=== PATIENT | female | born 2000 | race Caucasian/White ===

== ENCOUNTER 2022-01-06 14:23 | Emergency (ER) | payer BC, MEDICAID, SELFPAY ==
--- NOTE | ~2022-01-06 | XR_ITS ---
EXAMINATION: RIGHT HAND AND WRIST X-RAY CLINICAL INFORMATION: Pain. Trauma 10 days ago. COMPARISON: None TECHNIQUE: 4 views of the right hand and wrist FINDINGS: Bone alignment is normal. No fracture or dislocation is seen. Joint spaces are normal. Soft tissues are normal. XR/XR hand wrist RT IMPRESSION: Unremarkable exam.
[2022-01-06 14:33] VITALS: BP 160/75; PULSE 92; O2SAT 95
[2022-01-06 15:16] VITALS: BP 124/81; PULSE 85; RESP 15; TEMP 36.8; O2SAT 95; BMI 30.4
[2022-01-06 15:22] VITALS: PULSE 83; RESP 16
--- NOTE | 2022-01-06 16:08 | ED_ITS ---
HPI - Extremity Problem General Chief complaint: Extremity Injury, Upper Stated complaint: WRIST PAIN S/P PUNCHING WALL PER EMS Time Seen by Provider: 01/06/22 14:47 Source: patient Mode of arrival: EMS Limitations: no limitations History of Present Illness HPI Narrative: Patient presents to the emergency department for evaluation of pain swelling and bruising to the right hand. Patient coming from [facility], patient has been function hall and plexi-glass over the past week. Is noted to have more extensive bruising and swelling, and decreased movement to the fingers of right hand, therefore sent to the emergency department to have x-ray obtained Related Data Allergies Allergy/AdvReac Type Severity Reaction Status Date / Time No Known Allergies Allergy Verified 01/06/22 14:48 Review of Systems Review of Systems: MSK: Right hand pain and swelling Yes all other systems are reviewed and are negative [facility] Past Medical History Attestation statement: The following information was validated with the patient. Source: old records reviewed Social History Social History Advance Directives: No Advance Directives Information Provided: No Physical Exam Vital Signs: Vital Signs: Last Vital Signs Temp 98.3 F 01/06/22 15:16 Pulse 83 01/06/22 15:22 Resp 16 01/06/22 15:22 BP 124/81 01/06/22 15:16 Pulse Ox 95 01/06/22 15:16 O2 Del Method 01/06/22 15:16 BMI result Body Mass Index 30.4 Vital signs have been reviewed as normal and appeared to be correct. Blood pressure normal.? Heart rate normal.? Respiration rate normal. Temperature normal.? Oxygen saturation normal. Appearance: Alert.?Oriented to person, place and time. No acute distress.?Normal affect. Eyes: Pupils equal, round and reactive to light.? ENT: Pharynx normal.?? Neck: Normal inspection.? Neck supple.?? CVS: Heart sounds normal. Normal heart rate and rhythm.? Pulses normal.?? Respiratory: No respiratory distress.? Lung sounds clear to auscultation bilaterally?? Abdomen: Soft and non-tender Skin: Skin warm and dry.? Normal skin color.? Extremities: No lower extremity edema.? Right hand with significant bruising and swelling over the dorsal aspect the hand along the base of the 3rd through 5th digits, no erythema or warmth. No obvious deformity. Neuro: Moves all extremities spontaneously. Sensation intact bilaterally. No focal neuro deficits. Ambulates with normal steady gait. Course Course Course Narrative: Patient is a 21-year-old presenting for evaluation of right hand pain and bruising after repeated traumatic injury. X-ray obtained reveals no acute fracture or dislocation. Not consistent with septic arthritis. Limited AROM to 3rd-5th digit, notable swelling and ecchymosis. Consistent with contusion of the hand. Discussed plan of care for rest, ice, compression with GERTRUDIS bandage, Tylenol/ibuprofen as needed for pain, avoidance of further punching with this hand as this may result in subsequent fracture/ dislocation. MDM - Extremity (Nontraumatic) Medical Records Attestation: I reviewed the patient's medical records. Imaging Data XR hand/wrist: Radiologist's impression: FINDINGS: Bone alignment is normal. No fracture or dislocation is seen. Joint spaces are normal. Soft tissues are normal.? XR/XR hand wrist RT IMPRESSION: Unremarkable exam.? Discharge Plan Discharge Clinical Impression: Contusion of hand, right [facility] Details: [facility] Instructions: Contusion in Adults (ED), R.I.C.E. Treatment (ED) Additional Instructions: X-ray of right hand and wrist negative for any fracture dislocation Avoid punching anything as this may worsen the symptoms in your hand. You can take ibuprofen 200 mg, 3 tablets (600mg) every 6-8 hours as needed for pain, in addition to Tylenol 500 mg, 2 tablets (1,000mg) every 4-6 hours as needed for pain, but not to exceed 3 doses daily (3,000mg).? Ice for 10-15 minutes 3-4 times daily, gertrudis bandage for compression. Return to the emergency department any new or worsening symptoms or concerns
--- NOTE | 2022-01-06 16:45 | PC.NURSE ---
pt wrist wrapped in prabha bandage. +CSM no complaints. pt states that it feels good. 1:1 staff at bedside. awaiting BLS back
== END 2022-01-06 17:28 ==
PROVIDERS: Emergency Provider Emergency Medicine Emergency Medical Services
DX: S60.221A Contusion of right hand, initial encounter (principal); M79.601 Pain in right arm; X58.XXXA Exposure to other specified factors, initial encounter; Y93.9 Activity, unspecified; Y92.9 Unspecified place or not applicable; Y99.9 Unspecified external cause status
CPT/HCPCS: 73110; 73130; 99285